=== PATIENT | male | born 1965 | race Caucasian/White ===

== ENCOUNTER 2017-04-25 08:14 | Day surgery (SDC) | payer OTHER ==
[2017-04-25] MEDS ORDERED: FENTAnyl 50 MCG/ML VIAL (10:07)
[2017-04-25] MEDS ORDERED: MIDAZOLAM 1 MG/ML 2 ML INJ ×2 (10:07)
== END 2017-04-25 11:19 | disposition home or self-care (01) ==
LOC: GIL 08:14
DX: K51.90 Ulcerative colitis, unspecified, without complications (principal); K62.89 Other specified diseases of anus and rectum
CPT/HCPCS: 45378; 88305